=== PATIENT | female | born 1985 | race Caucasian/White ===

== ENCOUNTER 2023-03-30 06:35 | Day surgery (SDC) | payer BC, SELFPAY ==
[2023-03-30] VITALS (7 sets, daily range): BP systolic 106–131; BP diastolic 60–96; PULSE 58–62; RESP 16; TEMP 36.3–36.6; O2SAT 98–100; BMI 33.7
[2023-03-30] MEDS: LACTATED RINGERS 1000 ML 1,000 ML 100 ML IV (07:15)
[2023-03-30] MEDS: MIDAZOLAM HCL 1 MG/ML inj IVP (07:31)
[2023-03-30] MEDS: fentaNYL 100 MCG/2 ML inj IVP (07:32)
--- NOTE | 2023-03-30 07:33 | SUR.PREOP ---
TIME?OUT:?0730 PT/RN/MDA?VERIFICATION?OF?SURGICAL?SITE,?PROCEDURE,?AND?CONSENT OBTAINED?PRIOR?TO?INVASIVE?PROCEDURE.
[2023-03-30] MEDS: CEFAZOLIN 2 GM in 0.9 % SODIUM CHLORIDE Mini-bag 100 ML IVPB (07:45)
--- NOTE | 2023-03-30 07:58 | W.PM.NB ---
Nerve Block Nerve Block Time Seen by Provider: 07:30 Date Seen: 03/30/23 Type of block requested by surgeon for post-operative analgesia: axillary Side: right Time out performed: Yes Verification of patient name: Yes Verification of date of : Yes Site marking: site marked Name of person performing procedure: rustam litzy Continuous monitoring Was continuous monitoring of O2 sat, B/P, color television console monitor, recorded every 15 minutes?: Yes Procedure Checklist: sterile prep, needles and gloves Ultrasound guided. Images saved: Yes Medications given in 5ml increments after negative aspiration: Lidocaine %: 2 mL: 15 Needle gauge: 21 Patient tolerated procedure well: Yes Block Charges Block Charge (with Pro Fee): Axillary Nerve Use of Ultrasound Machine for Block: Yes- US Guidance/pain block
--- NOTE | 2023-03-30 08:29 | P.ORPRC_ITS ---
Procedure Note Date of procedure: 03/30/23 Procedure: PREOPERATIVE DIAGNOSIS: 1. Right volar radial wrist benign cyst POSTOPERATIVE DIAGNOSIS: 1. Right volar radial wrist benign cyst PROCEDURE: 1. Right volar radial wrist benign cyst open excision SURGEON: Moses Caraballo MD. RESTORATION SILVERSMITH: MARCY Garcias - Of note, an regulatory affairs assistant was critical for this case to aid in patient positioning, tissue retraction, limb manipulation/positioning, and closure. ANESTHESIA: Regional block plus MAC IMPLANTS: None TOURNIQUET: 9 minutes at 225 torr COMPLICATIONS: None evident INDICATIONS: The patient is a pleasant 38-year-old female who has experienced right volar, radial sided wrist growth/cyst development with associated pain that has progressively gotten worse. Nonoperative management has been tried but unsuccessful. Given the failure of nonoperative management, and how this affects daily life, surgery was recommended. DESCRIPTION OF PROCEDURE: Following a thorough discussion of risks, benefits, and alternatives consent was obtained and the operative extremity was marked. The patient was brought to the operating room and placed supine on the operating table. No antibiotics were administered as this was planned to be a local case only. Proper time-out was performed identifying proper patient, site, and procedure. The operative extremity was prepped and draped in the appropriate sterile fashion using ChloraPrep. The limb was exsanguinated and the tourniquet inflated. An incision was made on the volar aspect of the radial right wrist. Longitudinal incision.. Sharp incision through the skin, and blunt dissection through subcutaneous tissue allowed us to protect crossing neurologic structures as well as the radial artery. Blunt dissection around the cyst help from the surrounding tissues. The stalk indeed track deep towards the volar radial wrist joint. After mobilizing the cyst, it was accidentally punctured and a clear, thick, viscous gelatinous fluid was expressed consistent with a ganglion cyst. The remaining cyst sac was mobilized and freed from the surrounding tissue. The stalk was amputated with bipolar cautery at its base. The cyst was sent for permanent pathology. At this stage, the tourniquet was deflated and hemostasis achieved. Closure was performed with 4-0 Monocryl. Soft dressings were applied, and the patient was awoken/transferred to the recovery room in stable condition. PLAN: 1. Encourage elevation of the operative extremity. 2. Range of motion of the operative extremity/digits as tolerated. 3. Ibuprofen, acetaminophen and/or oxycodone as needed for pain. 4. Follow up with PA visit in 12-16 days for wound check and suture removal.
--- NOTE | 2023-03-30 08:29 | SUR.OPER ---
PATIENT QUESTIONS ANSWERED SATISFACTORILY PREOPERATIVELY.? PATIENT BROUGHT TO OR #3 PER CART AFTER BLOCK.? Patient positioned supine on OR #3 bed.? The perioperative?team supported armS bilaterally on arm boards. Final approval of positioning by surgeon.?
--- NOTE | 2023-03-30 08:30 | W.ANESCHARGE ---
Anesthesia Charges Start Date/Time Anesthesia Start Date: 03/30/23 Anesthesia Start Time: 07:41 Stop Date/Time Anesthesia Stop Date: 03/30/23 Anesthesia Stop Time: 08:30
== END 2023-03-30 09:17 | disposition home or self-care (01) ==
PROVIDERS: PCP Family Medicine; Visit Provider Orthopaedic Surgery Sports Medicine
PROC: (CPT 25111; principal; 2023-03-30 08:00)
DX: M67.431 Ganglion, right wrist (principal); G89.18 Other acute postprocedural pain
CPT/HCPCS: 25111; 01810; 64417; 76942; 88304; J0690; J1100; J2250; J2405; J2704; J3010; J7120

== ENCOUNTER 2023-08-18 15:11 | Outpatient (CLI) | payer BC, SELFPAY ==
--- NOTE | 2023-08-18 15:30 | MR_ITS ---
[facility] [place] [address] [facility] [address] Phone:?[phone] Fax:?[phone] Referring Physician Information: Moses Caraballo M.D. [address] [facility] [address] Phone:?[phone] Fax:?[phone] Patient:Thais Watson D.O.B:?1985 Sex:?Female Phone:?[phone] [facility] MRN:?[id number] Exam Date:?08/18/2023 EXAM: MRI of the RIGHT WRIST, without contrast CLINICAL HISTORY: Palpable abnormality of the right wrist. Evaluate recurring cyst. History of previous right wrist surgery. COMPARISONS: None available. TECHNICAL: MR sequences of the right wrist were obtained: coronals: T1, T2, STIR sagittals: PD FS axials: PD, PD FS Sedation: None Contrast: None FINDINGS: Joints and osseous structures: No fracture or suspicious bone marrow signal abnormality is seen. There is a small distal radioulnar joint effusion. There is no subluxation, dislocation, joint space narrowing, or erosive change. TFCC: A somewhat thinned appearance of the triangular fibrocartilage disc may reflect normal anatomic variation although it must be noted that evaluation is suboptimal because of nonarthrogram technique, and chronic attritional change is not excluded. The proximal and distal laminae of the ulnar attachment are intact. The volar and dorsal radioulnar ligaments are intact. Ligaments: Scapholunate: Intact. The scapholunate interval and angle are normal. The capitolunate angle is normal. Lunotriquetral: No evidence of tear on this nonarthrogram study. No offset of the lunotriquetral interval. Tendons: Flexors: Intact without tendinopathy or tenosynovitis. Extensors: ECU & 6th extensor compartment: Intact without romario tendinopathy tear or longitudinal splitting. Extensor retinaculum and fibrous subsheath appear intact without demonstrable subsheath injury or nonphysiologic ECU displacement. 1st - 5th extensor compartments: Intact and unremarkable. Neurovascular: Median: Unremarkable carpal tunnel without convincing neuritis or intrinsic/extrinsic masses. Ulnar: Unremarkable Guyon's canal without intrinsic/extrinsic masses. Ganglia: There is a 2.0 cm in craniocaudad dimension by 1.6 cm in AP dimension by 0.8 cm in transverse dimension ganglion at the volar and lateral aspect of the radial styloid abutting the dorsal and medial aspects of the radial artery and veins. IMPRESSION: 1. 2.0 x 1.6 x 0.8 cm ganglion at the volar and lateral aspect of the radial styloid abutting the dorsal and medial aspects of the radial artery and veins. 2. Small distal radioulnar joint effusion. 3. A somewhat thinned appearance of the triangular fibrocartilage disc may reflect normal anatomic variation although it must be noted that evaluation is suboptimal because of nonarthrogram technique, and chronic attritional change is not excluded. 4. No ligamentous or tendinous pathology of the right wrist. RCB Electronically signed on 08/19/2023 6:48:00 AM by Yefri Chow M.D.
== END 2023-08-18 15:12 | disposition home or self-care (01) ==
LOC: MRI 15:11
PROVIDERS: PCP Family Medicine; Visit Provider Orthopaedic Surgery Sports Medicine
DX: M67.431 Ganglion, right wrist (principal); M25.431 Effusion, right wrist
CPT/HCPCS: 73221

== ENCOUNTER 2023-10-27 19:50 | Emergency (ER) | payer BC, SELFPAY ==
[2023-10-27 19:52] VITALS: BP 153/89; PULSE 73; RESP 18; TEMP 36.4; O2SAT 99; BMI 34.5
--- NOTE | 2023-10-27 20:00 | ED.SOB ---
HPI - SOB/Dyspnea General Time Seen by Provider: 20:00 Date Seen: 10/27/23 Chief Complaint: Shortness of Breath/Dyspnea Stated Complaint: Upper resp issues-chest heavy-shortness of breath Time Seen by Provider: 10/27/23 19:59 Source: patient, RN notes reviewed and old records reviewed Mode of arrival: ambulatory Limitations: no limitations History of Present Illness HPI Narrative: 38-year-old female who comes in today with cough and chest congestion for the last couple of days. The symptoms started with sinus congestion, now with some chest heaviness and shortness of breath. This is worse when she is sitting and better when she is walking. Denies fever, chills, nausea, vomiting, diarrhea. No lower extremity swelling. Does smoke cigarettes. Notes history of exercise-induced asthma. Related Data Home Medications Medication Instructions Recorded Confirmed naproxen 500 mg tablet 500 mg PO BID PRN 06/21/23 08/11/23 Previous Rx's Medication Instructions Recorded albuterol sulfate 90 mcg/actuation 2 puff inhalation Q4H PRN 10/27/23 aerosol inhaler shortness of breath or wheezing #8.5 grams Allergies Allergy/AdvReac Type Severity Reaction Status Date / Time latex AdvReac Mild Verified 08/21/23 09:24 oxycodone AdvReac itching Verified 08/21/23 09:24 Review of Systems Status of ROS: Reports: 10 or more systems reviewed and unremarkable except as noted in History and below [facility] Surgical History History of surgery on right wrist (03/30/23) ?Z98.890 - Other specified postprocedural states (ICD-10) History of ankle surgery (12/12/19) ?Z98.890 - Other specified postprocedural states (ICD-10) Family History Maternal Grandmother Breast cancer Mother High blood pressure Social History Smoking Status: Current every day smoker What tobacco products do you use: cigars Do you use any of these nicotine containing products: None Second hand tobacco smoke exposure: No Exam Narrative: Exam Narrative: General: Well-developed and well-nourished, no acute distress Head: Atraumatic and normocephalic Eyes: Pupils are equal reactive, extraocular motions intact, conjunctiva clear ENT: External nose and ears are normal, posterior pharynx without erythema or exudate Neck: No midline cervical tenderness, full spontaneous range of motion the neck, trachea midline, no adenopathy Heart: Regular rate and rhythm no murmurs or thrills Lungs: Clear to auscultation bilaterally without wheezes or crackles Abdomen: Soft, nontender, nondistended with active bowel sounds Musculoskeletal: No tenderness, deformity, or edema Neurologic: Awake, alert, and oriented x3, no gross focal neurologic deficits, cranial nerves intact as tested Psych: Mood and affect are appropriate Skin: No rashes Const: Vital Signs, click to edit/add: Vital Signs - 24 hr 10/27/23 19:52 Temperature 97.5 F L Pulse Rate [Left P ulse Oximeter] 73 Respiratory Rate 18 Blood Pressure [Ri ght Upper Arm] 153/89 H Pulse Oximetry 99 Oxygen Delivery Me thod Room Air Course Course ED Course: Patient seen and examined, prior records are reviewed. Patient with upper respiratory symptoms and increasing chest tightness with history of exercise-induced asthma well, smokes cigarettes. On exam here, no hypoxia, no fever, no tachycardia. Labs are ordered along with chest x-ray and DuoNeb. Consider D-dimer or CT PE study to evaluate for pulmonary embolism but low risk by Wells criteria and PERC negative. Reevaluation(s) Time of Reevaluation #1: 20:34 Reevaluation #1: Chest x-ray independently interpreted by me negative for acute findings. Patient feels better after nebulizer treatment and is stable for discharge Vital Signs Vital signs: Initial Vital Signs Temperature 97.5 F L 10/27/23 19:52 Temperature Source Temporal Artery Scan 10/27/23 19:52 Pulse Rate 73 10/27/23 19:52 Pulse Rhythm Regular 10/27/23 19:52 Respiratory Rate 18 10/27/23 19:52 Blood Pressure 153/89 H 10/27/23 19:52 Blood Pressure Mean 110 H 10/27/23 19:52 Blood Pressure Position Sitting 10/27/23 19:52 Pulse Oximetry 99 10/27/23 19:52 Oxygen Delivery Method Room Air 10/27/23 19:52 Vital Signs Temperature 97.5 F L 10/27/23 19:52 Pulse Rate 73 10/27/23 19:52 Respiratory Rate 18 10/27/23 19:52 Blood Pressure 153/89 H 10/27/23 19:52 Pulse Oximetry 99 10/27/23 19:52 Oxygen Delivery Method Room Air 10/27/23 19:52 Temperature 97.5 F L 10/27/23 19:52 Pulse Rate 73 10/27/23 19:52 Respiratory Rate 18 10/27/23 19:52 Blood Pressure 153/89 H 10/27/23 19:52 Pulse Oximetry 99 10/27/23 19:52 Oxygen Delivery Method Room Air 10/27/23 19:52 Medications Administered Medications: Discontinued Medications Generic Name Dose Route Start Last Admin Trade Name Freq PRN Reason Stop Dose Admin Albuterol/Ipratropium 1 neb 10/27/23 20:07 10/27/23 20:42 Iprat-Albut 0.5-2.5 Mg/3 Ml Neb IH 10/27/23 20:08 1 neb ONCE ONE Administration MDM - SOB/Dyspnea Lab Data Labs: Lab Results 10/27/23 Range/Units 20:00 SARS-CoV-2 (PCR) Negative SARS-CoV-2 (Negative) Influenza Type A (PCR) Negative PCR FLU A (Negative) Influenza Type B (PCR) Negative PCR FLU B (Negative) RSV (PCR) Negative PCR RSV (Negative) Discharge Plan Discharge Clinical Impression: Acute bronchitis, Upper respiratory infection, viral Patient Disposition: Home, Self-Care Condition: Stable Instructions: Upper Respiratory Infection (DC), Acute Bronchitis (ED) Activity Level: No Restrictions Discharge Diet: Regular Prescriptions: New albuterol sulfate 90 mcg/actuation HFA aerosol inhaler 2 puff inhalation Q4H PRN (Reason: shortness of breath or wheezing) Qty: 8.5 0RF No Action naproxen 500 mg tablet 500 mg PO BID PRN Follow Up/Referrals: Jani Mtaos MD [Primary Care Provider] - Stand Alone Forms: [facility] Info Instructions
--- NOTE | 2023-10-27 20:07 | CRLHL7_ITS ---
For Patients: As a result of the Century Cures Act, medical imaging exams and procedure reports are released immediately into your electronic medical record. You may view this report before your referring provider. If you have questions, please contact your health care provider. INDICATION: Cough. TECHNIQUE: Chest 2 views. COMPARISON: None. FINDINGS: No focal consolidation, pleural effusion, or pneumothorax. Normal heart size and pulmonary vascularity. The bones are unremarkable. IMPRESSION: No acute cardiopulmonary findings. Dictated by Adelaide Lizarraga MD @ 10/27/2023 8:48:52 PM (Electronically Signed)
[2023-10-27 20:42] LABS: PCR FLU A Negative PCR FLU A (Negative); PCR FLU B Negative PCR FLU B (Negative); PCR RSV Negative PCR RSV (Negative); SARS PCR* Negative SARS-CoV-2 (Negative)
[2023-10-27] MEDS: IPRAT-ALBUT 0.5-2.5 MG/3 ML NEB 1 NEB IH (20:42)
== END 2023-10-27 21:01 | disposition home or self-care (01) ==
PROVIDERS: Emergency Provider Family Medicine; PCP Family Medicine
DX: J20.9 Acute bronchitis, unspecified (principal); J06.9 Acute upper respiratory infection, unspecified
CPT/HCPCS: 71046; 87631; 94640; 99284

== ENCOUNTER 2023-11-04 06:16 | Day surgery (SDC) | payer BC, SELFPAY ==
[2023-11-04] VITALS (7 sets, daily range): BP systolic 118–139; BP diastolic 62–88; PULSE 57–69; RESP 20; TEMP 36.4–36.7; O2SAT 96–100; BMI 34.0
--- OUTSIDE RECORDS SUMMARY | 2023-11-04 06:19 | XMS_ITS | Clinical Summary ---
Author Name Unknown Organization [facility] Address [place], [place] [address] Care Team Providers Care Cushion Assembler Name Role Phone Pcp, No Primary Care Provider Unavailabl e Allergies No known active allergies Medications Medication Sig Dispensed Refills Start Date End Date Status naproxen (NAPROSYN) 500 mg tabletIndications:Later al epicondylitis of left elbow Take 1 Tablet (500 mg) by mouth 2 times daily. 50 Tablet 1 12/10/2021 Active Active Problems Problem Noted Date Diagnosed Date Cigar smoker 12/07/2019 Health maintenance examination 07/04/2009 Overview: Pap smear 04/12/09 Seasonal allergic rhinitis Encounters Date Type Department Care Team Description 10/27/[address] [facility] Scanner 1 scan: (1-Ord) [facility], CHEST, 10/27/2023 10/09/2023 3:55 PM CHUCK BONER Preop Visit [facility] [address] [place] [address] Ciara Henson MD Pre-Op Exam (10/26/23 cyst removal on rt wrist ) 10/09/2023 Travel 08/18/[address] [facility] Scanner 1 scan: (1-Ord) [facility], MRI OF THE RIGHT WRIST, W/O CONTRAST, 08/18/2023 from Last 3 Months Immunizations Name Administration Dates Next Due Hepatitis B (Adult) 09/08/2001 Rabies Vaccine 10/18/2001,09/17/2001,09/10/2001 Td (Age >=7 Years) 10/12/2009,05/21/1999 Tdap 12/07/2019 Family History Medical History Relation Name Comments Hypertension Mother Other Mother migraines, GERD , hiatal hernia Relation Name Status Comments Mother Social History Tobacco Use Types Packs/Day Years Used Date Smoking Tobacco: Every Day Cigars Smokeless Tobacco: Never Tobacco Cessation:Ready to Q uit: No; Counseling Given: Yes Comments:3-4 cigars per day Alcohol Use Standard Drinks/Week Comments Yes 0 (1 standard drink = 0.6 oz pur e alcohol) occ PHQ-2 Answer Date Recorded PHQ-2 TOTAL SCORE 0 05/23/2021 Social Connections Answer Date Recorded Frequency of Communication with Friends and Fami ly 0 12/08/2022 Financial Resource Strain Answer Date R ecorded Difficulty of Paying Living Expenses 3 12/08/2022 Difficulty of Paying Living Expenses Not on file 12/08/2022 Food Insecurity Answer Date Recorded Worried About Running Out of Food in the Last Ye ar 1 12/08/2022 Transportation Needs Answer Date Record ed Lack of Transportation (Medical) 1 12/08/2022 Housing Stability Answer Date Recorded Unable to Pay for Housing in the Last Year 1 12/08/2022 Sex and Gender Information Value Date Recorded Sex Assigned at Not on file Gender Identity Not on file Sexual Orientation Not on file Obstetrics History Last Filed Vital Signs Vital Sign Reading Time Taken Comments Blood Pressure 126/80 10/09/2023 4:03 PM CHUCK BONER Pulse 57 10/09/2023 4:03 PM CHUCK BONER Temperature 36.8 ??C (98.3 ??F) 10/09/2023 4:03 PM CS T Respiratory Rate 16 09/17/2015 10:30 AM CHUCK BONER Oxygen Saturation 98% 10/09/2023 4:03 PM CHUCK BONER Inhaled Oxygen Concentration - - Weight 98.4 kg (217 lb) 10/09/2023 4:03 PM CHUCK BONER Height 170.2 cm (5' 7) 03/24/2023 4:17 PM CDT Body Mass Index 33.99 03/24/2023 4:17 PM CDT Plan of Treatment Health Maintenance Due Date Last Done Comments COVID-19 vaccine series (#1) 1983 Pneumococcal series for age 6-64 (1 of 2 - PCV) 1989 Hepatitis C screening for ag e 18-79 2001 Pap test for age 21-65 10/12/2012 0 (Completed outside of [facility]) Depression screening for age 12+ 05/23/2022 05/23/2021, 12/07/2019, 12/07/2019 Influenza for age 9-49 06/12/2023 BMI (ht and wt on same day) for age 18+ 03/24/2024 03/24/2023, 12/10/2021, 05/23/2021, Additional history exists Tetanus booster 12/07/2029 12/07/2019, 10/2009, 05/21/1999 HIV for age 15-65 Completed 05/18/2009 Tdap Completed 12/07/2019 Procedures Procedure Name Priority Date/Time Associated Diagnosis Comments SCAN-RADIOLOGY REPORT 10/27/2023 12:00 AM CHUCK BONER SCAN-MRI INTERPRETATION 08/18/20 12:00 AM CHUCK BONER from Last 3 Months Results * SCAN-RADIOLOGY REPORT (10/27/2023 12:00 AM CHUCK BONER) Anatomical Region Laterality Modality Other Scanner OTHER * SCAN-MRI INTERPRETATION (08/18/2023 12:00 AM CHUCK BONER) Anatomical Region Laterality Modality Other Scanner OTHER from Last 3 Months Care Teams Cushion Assembler Relationship Specialty Start Date End Date Pcp, No . PCP - General 04/02/15
[2023-11-04] MEDS: LACTATED RINGERS 1000 ML 1,000 ML 100 ML IV (06:45)
[2023-11-04] MEDS: SODIUM CHLORIDE 0.9 % (FLUSH) 10 ML SYRINGE IVF (06:59)
[2023-11-04] MEDS: fentaNYL 100 MCG/2 ML inj IVP (07:15)
[2023-11-04] MEDS: MIDAZOLAM HCL 1 MG/ML inj IVP (07:15)
--- NOTE | 2023-11-04 07:22 | SUR.PREOP ---
TIME?OUT:?0700, right wrist PT/RN/MDA?VERIFICATION?OF?SURGICAL?SITE,?PROCEDURE,?AND?CONSENT OBTAINED?PRIOR?TO?INVASIVE?PROCEDURE.
[2023-11-04] MEDS: CEFAZOLIN 2 GM in 0.9 % SODIUM CHLORIDE Mini-bag 100 ML IVPB (07:34)
--- NOTE | 2023-11-04 08:07 | W.PM.H&PU ---
History & Physical Update History & Physical Update H&P Reviewed and patient assessed: No changes noted
--- NOTE | 2023-11-04 08:07 | PM.ORPRC ---
Procedure Note Date of procedure: 11/04/23 Procedure: PREOPERATIVE DIAGNOSIS: 1. Right volar, radial wrist recurrent benign cyst POSTOPERATIVE DIAGNOSIS: 1. Right volar, radial wrist recurrent benign cyst PROCEDURE: 1. Right volar, radial wrist recurrent benign cyst open excision SURGEON: Moses Caraballo MD. BLANKER PRESS OPERATOR: MARCY Garcias - Of note, an assistant store manager operations was critical for this case to aid in patient positioning, tissue retraction, limb manipulation/positioning, and closure. ANESTHESIA: Regional block plus MAC IMPLANTS: None EBL: 5 ml TOURNIQUET: 23 minutes at 225 torr - biceps tourniquet COMPLICATIONS: None evident INDICATIONS: The patient is a pleasant 38-year-old female who has experienced right volar, radial wrist cyst development. She had this surgically excised in 2022. Unfortunately, it recurred. Thus, her pain has recurred with it when her wrist is in extended posture or when there is direct pressure overlying the cyst. Given the failure of nonoperative management and how this affects daily life, surgery was recommended. DESCRIPTION OF PROCEDURE: Following a thorough discussion of risks, benefits, and alternatives consent was obtained and the operative extremity was marked. The patient was brought to the operating room and placed supine on the operating table. No antibiotics were administered as this was planned to be a local case only. Proper time-out was performed identifying proper patient, site, and procedure. The operative extremity was prepped and draped in the appropriate sterile fashion using ChloraPrep. The limb was exsanguinated and the tourniquet inflated. The previous scar over the volar, radial side of the wrist was visualized and reincised sharply with a 15 blade. Blunt dissection through subcutaneous tissue allowed us to identify the radial artery which coursed immediately adjacent to the cyst. The artery was on the superficial ulnar side of the cyst. Although the cyst was bulbous and somewhat wrapped around the artery. The artery was protected throughout the case. The cyst was tracked down deep which did have a stalk going to the deep radial side of the wrist. Bipolar cautery was utilized to cauterize this. Additionally, adhesions some surrounding tissue were released and the cyst was removed EN bloc and sent for pathology. Thorough irrigation normal saline was performed. At this stage, the tourniquet was deflated and hemostasis achieved. Closure was performed with 3-0 Vicryl and 4-0 Stratafix for subcutaneous and subcuticular closure, respectively. Soft dressings were applied, and the patient was awoken/transferred to the recovery room in stable condition. PLAN: 1. Encourage elevation of the operative extremity. 2. Range of motion of the operative extremity/digits as tolerated. 3. Ibuprofen, acetaminophen and/or tramadol as needed for pain. 4. Follow up with PA visit in 12-16 days for wound check.
--- NOTE | 2023-11-04 08:24 | W.ANESCHARGE ---
Anesthesia Charges Start Date/Time Anesthesia Start Date: 11/04/23 Anesthesia Start Time: 07:26 Stop Date/Time Anesthesia Stop Date: 11/04/23 Anesthesia Stop Time: 08:23
--- NOTE | 2023-11-04 11:36 | W.ANESCHARGE ---
Anesthesia Charges Start Date/Time Anesthesia Start Date: 11/04/23 Anesthesia Start Time: 07:26 Stop Date/Time Anesthesia Stop Date: 11/04/23 Anesthesia Stop Time: 08:23
--- NOTE | 2023-11-04 11:37 | W.PM.NB ---
Nerve Block Nerve Block Time Seen by Provider: 07:14 Date Seen: 11/04/23 Type of block requested by surgeon for post-operative analgesia: axillary Side: right Time out performed: Yes Verification of patient name: Yes Verification of date of : Yes Site marking: site marked Name of person performing procedure: Antony Continuous monitoring Was continuous monitoring of O2 sat, B/P, director of corporate communications, recorded every 15 minutes?: Yes Procedure Checklist: sterile prep, needles and gloves Ultrasound guided. Images saved: Yes Medications given in 5ml increments after negative aspiration: Ropivicaine %: 0.5 mL: 15 Needle gauge: 22 and Lidocaine %: 2 mL: 15 Patient tolerated procedure well: Yes Additional comments: Needle noted adjacent to nerve Block Charges Block Charge (with Pro Fee): Brachial Plexus Use of Ultrasound Machine for Block: Yes- US Guidance/pain block
== END 2023-11-04 09:20 | disposition home or self-care (01) ==
PROVIDERS: PCP Family Medicine; Visit Provider Orthopaedic Surgery Sports Medicine
PROC: (CPT 25112; principal; 2023-11-04 07:30)
DX: M67.431 Ganglion, right wrist (principal); G89.18 Other acute postprocedural pain
CPT/HCPCS: 25112; 01810; 64415; 76942; 88304; J0690; J2250; J2405; J2704; J2795; J3010; J7120

== ENCOUNTER 2025-03-15 08:07 | Inpatient (IN) | payer BC, SELFPAY ==
[2025-03-15] VITALS (19 sets, daily range): BP systolic 132–161; BP diastolic 78–98; PULSE 59–78; RESP 14–18; TEMP 36.4–37; O2SAT 94–100; BMI 33.9
[2025-03-15] MEDS: LACTATED RINGERS 1000 ML 1,000 ML 100 ML IV ×2 (08:45→11:30)
[2025-03-15] MEDS: SODIUM CHLORIDE 0.9 % (FLUSH) 10 ML SYRINGE IVF (08:45)
[2025-03-15 08:52] LABS: Hemoglobin* 14.3 gm/dL (12.0-16.0)
[2025-03-15 08:54] LABS: Ur HCG Qualitative* Negative (Negative)
[2025-03-15 09:13] LABS: Creatinine* 0.7 mg/dL (0.5-1.5); Est. Creatinine Clearance* 98.01; Estimated Glomerular Filt Rate 111 ml/min
[2025-03-15] MEDS: ACETAMINOPHEN 500 MG TABLET 1000 MG PO (09:30)
[2025-03-15] MEDS: SCOPOLAMINE 1 MG/3 DAY PATCH 1 PATCH TRANSDERMA (09:30)
[2025-03-15] MEDS: GABAPENTIN 600 MG TABLET PO (09:30)
[2025-03-15] MEDS: CEFAZOLIN 1 GM inj 2 GM IVP ×2 (09:45→13:30)
--- NOTE | 2025-03-15 10:39 | P.NB_ITS ---
Nerve Block Nerve Block Time Seen by Provider: 09:45 Date Seen: 03/15/25 Type of block requested by surgeon for post-operative analgesia: TAP Side: bilateral Time out performed: Yes Verification of patient name: Yes Verification of date of : Yes Site marking: site marked Name of person performing procedure: Antony Continuous monitoring Was continuous monitoring of O2 sat, B/P, environmental monitoring technician, recorded every 15 minutes?: Yes Procedure Checklist: sterile prep, needles and gloves Ultrasound guided. Images saved: Yes Medications given in 5ml increments after negative aspiration: Marcaine %: 0.25 mL: 30 Needle gauge: 20 and Exparel mL: 10 Patient tolerated procedure well: Yes Additional comments: Needle noted between internal oblique and transversus abdominus. Local spread visualized Block Charges Block Charge (with Pro Fee): TAP Bilateral Use of Ultrasound Machine for Block: Yes- US Guidance/pain block
--- NOTE | 2025-03-15 10:40 | P.ANES_ITS ---
Anesthesia Charges Start Date/Time Anesthesia Start Date: 03/15/25 Anesthesia Start Time: 09:32 Stop Date/Time Anesthesia Stop Date: 03/15/25 Anesthesia Stop Time: 15:17 Coding CPT Codes CPT Codes: ANESTH SURG LOWER ABDOMEN - 39953 ([id number]) P2 - PATIENT W/MILD SYST DISEASE, QK - SAXOPHONE ASSEMBLER 2-4 CNCRNT ANES PROC, QX - PROCESS LABORATORY SPECIALIST SVC W/ MD MED DIRECTION
--- NOTE | 2025-03-15 10:40 | W.ANESCHARGE ---
Anesthesia Charges Start Date/Time Anesthesia Start Date: 03/15/25 Anesthesia Start Time: 09:32 Stop Date/Time Anesthesia Stop Date: 03/15/25 Anesthesia Stop Time: 15:17 Coding CPT Codes CPT Codes: ANESTH SURG LOWER ABDOMEN - 17304 ([id number]) P2 - PATIENT W/MILD SYST DISEASE, QK - CURED MEAT PACKING SUPERVISOR 2-4 CNCRNT ANES PROC, QX - SPECIAL TESTER SVC W/ MD MED DIRECTION
[2025-03-15] MEDS: 0.9 % SODIUM CHLORIDE 100 ml INJECTION (10:43)
[2025-03-15] MEDS: VASOPRESSIN 20 UNIT/ML INJ INJECTION (10:43)
--- NOTE | 2025-03-15 11:20 | SUR.OPER ---
Kelly, patient's mom was called to give her an update on how the surgery was going. Everything is going fine, we have been working approximately an hour and we are working to get the uterus out. Kelly was appreciative of the call.
--- NOTE | 2025-03-15 13:01 | SUR.OPER ---
Updated mom of patient Cori that the doctor ran into a complication and it will be a little longer. Reassured the patient was doing well. Kikei asked what complication. Stated patient's complication has to do with the bladder and Dr. Benz will discuss more with you later.
--- NOTE | 2025-03-15 13:45 | SUR.OPER ---
Farooq cathetar has been in and out of bladder 3 times during procedure.Use of sterile formula instilled in the bladder.
[2025-03-15] MEDS: KETOROLAC 30 MG/ML inj IVP (14:50)
--- NOTE | 2025-03-15 15:17 | P.GYNPRC_ITS ---
Procedure Note Date of procedure: 03/15/25 Will [facility] bill your pro fee for this procedure?: Yes Pre-op diagnosis: Symptomatic fibroid uterus. Post-op diagnosis: Same. Procedure: 1. Total abdominal hysterectomy. 2. Bilateral salpingectomy. 3. Bladder repair. 4. Cystoscopy. Anesthesia: GETA and other (TAP block.) Complications: Bladder injury. Surgeon: aPmela Benz MD Manager In Home: Catalina Gottlieb Estimated blood loss (mL): 200 IV fluids (mL): 1,800 Urine Output (mL): 200 Pathology: specimen obtained, sent to pathology (A - Uterus with attached cervix (103 g), Fibroid (600 g). B - left fallopian tube. C - right fallopian tube.) Condition: stable Disposition: PACU Findings: Enlarged irregular uterus with multiple fibroids. The largest fibroid was pedunculated, extending from the fundus of the uterus and extending to the patient's right, and appeared to consist of three large fibroids group together with calcifications and serosal adhesions. There were also distended, tortuous vessels along the serosal aspect of the most anterior fibroid. There was also what appeared to be a fibroid extending in to the right fallopian tube at the right uterine cornua. The remainder of the right fallopian tube appeared normal. The left fallopian tube was normal in appearance. Both ovaries were normal in appearance. Note, the left ovary contained adhesions connecting it to the sigmoid colon. Cystoscopy findings following closure of the vaginal cuff: Two sutures apparent within the bladder along the posterior aspect of the bladder, not within the trigone nor at the dome. Both ureteral orifices were well visualized and fluorescein-tinged urine jets were seen from both orifices multiple times. Cystoscopy findings following repair of the bladder defect: Intact repair, water tight. Both ureteral orifices were well visualized and fluorescein-tinged urine jets were seen from both orifices multiple times. Procedure Description: REFERRING PHSICIAN/PROVIDER: Dr. Henson. PREOPERATIVE DIAGNOSIS: Symptomatic fibroid uterus. POSTOPERATIVE DIAGNOSIS: Same. NAME OF PROCEDURE: Total abdominal hysterectomy. Bilateral salpingectomies. Bladder repair. Cystoscopy. SURGEON: Pamela Benz MD ASSISTANTS: Catalina Gottlieb MD, Trinidad Argueta MD. ANESTHESIA: General endotracheal. COMPLICATIONS: Bladder injury. ESTIMATED BLOOD LOSS: 200 cc. DRAINS: Farooq to gravity. PROCEDURE: After obtaining informed consent, the patient was taken to the operating room where general anesthesia was obtained without difficulty. A TAP block was administered by Anesthesiologist. She was prepared and draped in the normal sterile fashion in the low dorsal lithotomy position. A Farooq catheter was inserted sterilely into the bladder. A Pfannenstiel skin incision was made with a scalpel. This incision was carried down to the underlying layer of fascia with the Bovie. The fascia was incised in the midline and the incision extended laterally. The superior and inferior aspects of the fascial incision were grasped with Akil clamps and the underlying rectus muscles dissected off sharply. The rectus muscles were in the midline. The underlying peritoneum was identified and entered bluntly. The peritoneal incision was extended superiorly and inferiorly with good visualization of the bladder. The patient was placed in some mild Trendelenburg positioning. The bowels were packed cephalad using a large moistened laparotomy sponge. The Eulogio O retractor was placed in the incision. This provided adequate visualization of the pelvis. The pelvis was inspected with the findings noted above. The uterus was exteriorized as much as possible. In order to establish more normal anatomy, the decision was made to excise the large pedunculated mass of fibroids. The large accessory vessels which were seen on serosal surface of the fibroid mass were sealed with the LigaSure device on the serosal surface for hemostasis. A dilute solution of vasopressin was then injected directly into the base of the fibroid mass at the uterine fundus. The mass was then excised using electrocautery and passed off the field. The excision base was oversewn in a running fashion using 0 Vicryl for hemostasis. Clary clamps were placed at the cornua bilaterally for traction. Attention was turned to the left fallopian tube, which was elevated using a Jessica clamp and excised from its ovarian and broad ligament attachments using the LigaSure device. The LigaSure device was then used to divide the tube at the right uterine cornua and the tube was passed from the field. The right fallopian tube was then elevated with a Jessica clamp and excised from its ovarian and broad ligament attachments with the LigaSure device in a similar fashion up to the point where the tube was distended by what appeared to be a cornual fibroid. The tube was excised at this location and passed from the field. Both ureters were identified along their courses within the pelvic sidewall palpably. The right right round ligament was doubly clamped with Akil clamps, transected, and suture ligated with 0 Vicryl. The anterior leaf of the broad ligament was opened to the midline from the right side. The right ovarian ligament was then isolated, clamped across with 2 Sukhjinder clamps, transected, and doubly suture ligated with 0 Vicryl. Hemostasis was observed. The uterine vessels were skeletonized on the right side. The vessels were clamped across with a Sukhjinder and a straight clamp, transected, and suture ligated. Excellent hemostasis was visualized. Attention was then turned to the left side. The left round ligament was clamped with 2 Akil clamps, transected, and suture ligated with 0 Vicryl. The anterior leaf of the broad ligament was opened from the left side to the midline. The bladder was further bluntly dissected distally off of the lower uterine segment and cervix. The left ovarian ligament was clamped with 2 Sukhjinder clamps, transected, and doubly suture ligated with 0 Vicryl. Hemostasis was visualized. The left uterine vessels were skeletonized and then clamped across with Sukhjinder clamps, transected, and suture ligated. Excellent hemostasis was obtained. The remaining cardinal and uterosacral ligament attachments on both sides were serially clamped with straight Sukhjinder clamps adjacent to the lower uterine segment and cervix, transected and suture ligated with 0 Vicryl. Excellent hemostasis was obtained. Two Sukhjinder clamps were placed across the vaginal cuff angles. The uterus with attached cervix was then transected and passed off the field. The vaginal cuff angles were fixed with Sukhjinder stitches of 0 Vicryl. The intervening vaginal cuff was closed with [id number] sutures of 0 Vicryl while retracting the bladder using a sweetheart retractor. The abdomen and pelvis were then copiously irrigated. Small bleeding vessels were isolated with DeBakey clamps and cauterized for hemostasis. Geovanna was placed over raw tissue edges for additional hemostasis. My attention was then turned below. Cystoscopy was performed in the following manner. The Farooq catheter was sterilely removed from the bladder. Cystoscopy was performed using sterile normal saline to gravity drainage for distending medium. Both ureteral orifices were easily visualized and fluorescein-tinged jets of urine were seen from both ureteral orifices. The dome of the bladder was free of visible injury. Unfortunately, there was blue Vicryl suture material visualized along the posterior wall of the bladder above the trigone but not as high as the dome. It appeared that there were two sutures that had gone through and through the bladder during the vaginal cuff closure. These sutures were cut, and the bladder was visualized to have a 1 cm defect, spilling cystoscopy fluid into the abdomen. The cystoscope was removed. Attention was once again turned to the abdomen. An additional cuff suture in the midline was removed. The bladder defect was identified and grasped along the edges with Kayla clamps. The defect was reapproximated in a very careful running fashion using 3-0 Vicryl on an SH needle. A second imbricating layer was also placed of 3-0 Vicryl. Cystoscopy was repeated, and there still appeared to be some leaking from the defect. Dr. Argueta was called in at this point to provide further assistance. Additional 3-0 Vicryl was needed to further repair the defect and to imbricate incorporating a wider swath, as the initial imbrication layer had only reapproximated the mucosa, not the serosa. The bladder was back filled with sterile milk during the repair process and afterwards, to a total of 300 mL, and ultimately the repair was found to be watertight. Cystoscopy was again performed which again showed normal jets from both ureteral orifices, and an intact repair. The cystoscope was removed and a new Farooq catheter was placed sterilely into the bladder left to gravity drainage. My attention was once again turned to the abdomen. The abdomen is copiously irrigated. Geovanna was again applied over the raw edges of the vaginal cuff and bladder repair. No active bleeding was noted. All laparotomy sponges and instruments were then removed from the abdomen. The subfascial tissues were carefully inspected and hemostasis assured. The fascia was reapproximated in a running fashion with a looped 0 Maxon suture. The subcutaneous tissues were copiously irrigated and hemostasis assured. The subcutaneous adipose layer was reapproximated with interrupted sutures of 3-0 plain gut. The skin was closed in a subcuticular fashion with 4-0 Vicryl. Surgical glue and a dressing were applied. The patient tolerated the procedure well. Sponge, lap, needle, instrument counts were reported as correct x2. The patient was taken to recovery room awake and in stable condition. She received 2 g of IV Ancef preoperatively and an additional 2 g IV when operating time reached 3 hours. She received IV Toradol 30 mg at the conclusion of the procedure.
--- NOTE | 2025-03-15 15:18 | P.ANES_ITS ---
Anesthesia Charges Start Date/Time Anesthesia Start Date: 03/15/25 Anesthesia Start Time: 09:32 Stop Date/Time Anesthesia Stop Date: 03/15/25 Anesthesia Stop Time: 15:17 Coding CPT Codes CPT Codes: ANESTH SURG LOWER ABDOMEN - 99653 ([id number]) P3 - PATIENT W/SEVERE SYS DISEASE, QK - AB INITIO ETL DEVELOPER 2-4 CNCRNT ANES PROC, QX - AUDIT MANAGER SVC W/ MD MED DIRECTION
--- NOTE | 2025-03-15 15:18 | W.ANESCHARGE ---
Anesthesia Charges Start Date/Time Anesthesia Start Date: 03/15/25 Anesthesia Start Time: 09:32 Stop Date/Time Anesthesia Stop Date: 03/15/25 Anesthesia Stop Time: 15:17 Coding CPT Codes CPT Codes: ANESTH SURG LOWER ABDOMEN - 99695 ([id number]) P3 - PATIENT W/SEVERE SYS DISEASE, QK - HAIR MIXER 2-4 CNCRNT ANES PROC, QX - PIPE CREW FOREMAN SVC W/ MD MED DIRECTION
[2025-03-15] MEDS: fentaNYL 100 MCG/2 ML inj 50 MCG IVP ×2 (15:31→15:41)
[2025-03-15] MEDS: MORPHINE 2 MG/ML inj IVP ×3 (16:34→21:10)
[2025-03-15] MEDS: OXYCODONE 5 MG TABLET PO ×2 (17:44→22:52)
--- NOTE | 2025-03-15 19:06 | PC.NURSE ---
Addendum entered by Christy Johnson RN 03/15/25 19:14: Dressing to the abdomen CDI. CMS intact. Original Note: Pt arrived to the unit @ 1545, accompanied by family members. Tolerating RA, LSCTA. SCDs in place. LR running @ 40 ml/hr. Pt is eating and drinking. Slight nausea noted during dinner, fiction and nonfiction writer prose encouraged small-slow eating. Farooq is patent and draining. Pt reports pain to the abdomen, fiction and nonfiction writer prose utilizing PRN medication, active ice, repositioning, and environmental control. Continuing to assess and evaluate an effective pain management plan. Pt appears resting in bed with call light in reach.
[2025-03-15] MEDS: IBUPROFEN 600 MG TABLET PO (21:10)
[2025-03-15] MEDS: ONDANSETRON 2 MG/ML inj 4 MG IVP (21:16)
[2025-03-16] MEDS: MORPHINE 2 MG/ML inj IVP ×4 (01:26→19:56)
[2025-03-16] MEDS: IBUPROFEN 600 MG TABLET PO ×4 (03:13→20:44)
[2025-03-16 03:15] VITALS: BP 140/84; PULSE 61; RESP 18; TEMP 36.6; O2SAT 98
[2025-03-16] MEDS: OXYCODONE 5 MG TABLET PO ×4 (03:26→18:05)
[2025-03-16 06:17] LABS: Hemoglobin* 13.2 gm/dL (12.0-16.0)
[2025-03-16 06:29] LABS: Creatinine* 0.7 mg/dL (0.5-1.5); Est. Creatinine Clearance* 98.01; Estimated Glomerular Filt Rate 111 ml/min
--- NOTE | 2025-03-16 06:35 | PC.NURSE ---
Shift note ([id number]): Patient pleasant, alert and oriented. Remained in bed. Farooq catheter patent. Abdominal dressing C, D & I. Given scheduled Ibuprofen, PRN Oxycodone and PRN Morphine for abdominal and back pain rated 6-8/10. Ice pack applied.?
[2025-03-16 08:30] VITALS: BP 127/69; PULSE 56; RESP 18; TEMP 36.6; O2SAT 98
[2025-03-16] MEDS: ONDANSETRON 2 MG/ML inj 4 MG IVP (08:48)
[2025-03-16] MEDS: NITROFURANTOIN MONOHYD MACRO 100 MG CAPSULE PO (08:48)
--- NOTE | 2025-03-16 08:59 | PM.GYNPNPO ---
VETERINARY POULTRY INSPECTOR - A/P Postoperative Procedures: Procedures Operation Date: 03/15/25 09:30 Actual Procedure Side Surgeon p Total Abdominal Hysterectomy, Bilateral Salpingectomy, bladder repair, cystoscopy Bilateral Pamela Benz MD Postoperative day: 1 Postoperative status: doing well Postoperative plan: routine post-op care and other (Continue downey catheter until 03/24/2025. Will schedule her for voiding cystourethrogram on 03/24 to assess bladder. We discussed the surgery in detail, the anticipated postop course, activity restrictions, the catheter and follow up. Dr. Gottlieb will see her tomorrow.) Time Spent With Patient Time: Total time spent is greater than 50% in coordination of care (as documented) at patient's floor/unit and/or counseling patient: Time with patient: 25 - 35 minutes VETERINARY POULTRY INSPECTOR- PN:Subj Post-Op Subjective Date Seen: 03/16/25 Post Operative Details: Post-operative day number 1: status post total abdominal hysterectomy, bilateral salpingectomy, bladder repair and cystoscopy. Subjective: patient reports feeling better (Some lingering abdominal discomfort and back pain, though has a history of back pain previously as well), pain is well controlled (with IV morphine and now oxycodone), ambulating well and patient is tolerating oral intake VETERINARY POULTRY INSPECTOR-PN: Obj Exam Physical Exam: Vital signs: Temp Pulse Resp BP Pulse Ox O2 Del Method 97.9 F 61 18 140/84 H 98 Room Air 03/16/25 03:15 03/16/25 03:15 03/16/25 03:15 03/16/25 03:15 03/16/25 03:15 03/16/25 03:15 Constitutional: Constitutional: no acute distress Routine HEENT Exam: Head: Present normal inspection Routine Neck Exam: Neck: Present supple Routine Respiratory Exam: Respiratory: Present CTA bilaterally; Absent crackles, rhonchi or wheezes Routine Cardiovascular Exam: Cardiovascular: Present RRR; Absent murmur Routine Abdominal Exam: Abdominal: Present normal bowel sounds and soft; Absent distended or tenderness Comments: Incision(s) clean, dry, intact Routine Extremities Exam: Extremities: Present normal inspection; Absent calf tenderness or pedal edema Routine Psychiatric Exam: Psychiatric: Present normal affect Urinary Catheter Management: 2-way Urethral: Cath placed during this visit: no VETERINARY POULTRY INSPECTOR - PN: Obj Data Labs Labs: Laboratory Results - last 24 hr 03/15/25 03/16/25 08:40 05:58 Hgb 13.2 Creatinine 0.7 0.7 Estimated Creat Clear 98.01 98.01 Estimated GFR 111 111 Blood Type O Positive Antibody Screen NEGATIVE
[2025-03-16 11:00] VITALS: BP 135/75; PULSE 55; RESP 18; TEMP 36.4; O2SAT 97
[2025-03-16] MEDS: ACETAMINOPHEN 500 MG TABLET 1000 MG PO ×2 (11:11→18:06)
[2025-03-16 15:00] VITALS: BP 110/73; PULSE 71; RESP 18; TEMP 37.1; O2SAT 97
[2025-03-16 19:00] VITALS: BP 119/71; PULSE 85; RESP 17; TEMP 36.8; O2SAT 98
--- NOTE | 2025-03-16 19:30 | PC.NURSE ---
The patient is pleasant and cooperative with cares, VSS on RA. The patients pain has been difficult to keep under control with PRN medication and Ice to the Op site. Recommended more activity, although the patient remained in bed after breakfast in the chair. Farooq is patent and draining. Lower abdominal incision is CDI and open to air. No N/V, and call light is within reach. Bessy URRUTIA BSN
[2025-03-17] VITALS (7 sets, daily range): BP systolic 125–163; BP diastolic 74–92; PULSE 63–76; RESP 16–18; TEMP 36.6–37.2; O2SAT 96–98
[2025-03-17] MEDS: OXYCODONE 5 MG TABLET PO ×4 (00:23→22:53)
[2025-03-17] MEDS: IBUPROFEN 600 MG TABLET PO ×3 (04:28→20:42)
[2025-03-17] MEDS: ONDANSETRON 2 MG/ML inj 4 MG IVP ×2 (04:36→12:20)
[2025-03-17] MEDS: SIMETHICONE 80 MG TAB.CHEW 160 MG PO ×2 (05:24→12:00)
[2025-03-17] MEDS: PROMETHAZINE 25 MG/ML INJ 12.5 MG IVP (06:42)
--- NOTE | 2025-03-17 06:47 | PC.NURSE ---
Shift note ([id number]): Patient pleasant, alert and oriented. Transferring with assist of one. Farooq catheter patent. Small amount of bright red blood from vagina noted after passing gas. Catheter tubing was not secured to leg strap and may have been pulled. Unknown of blood was from vagina or urethra. Abdominal incision open to air with no drainage or signs of infection. Given scheduled Ibuprofen, PRN Oxycodone and PRN Morphine for abdominal pain rated 6-8/10. Ice pack applied at times. Pt reported nausea and vomited . Given PRN Zofran at 0430 and anti-nausea aromatherapy. Patient having nausea and vomited again at approximately 0600. Dr Salguero called and updated. New orders for phenergan 12.5mg IBP once and labs ordered.?
[2025-03-17 06:57] LABS: Basophils Percent Auto 0.2 % (0.0-3.0); Eosinophils Percent Auto 0.2 % (0.0-7.0); Hematocrit 36.4 % (33.0-51.0); Hemoglobin* 12.3 gm/dL (12.0-16.0); Immature Granulocytes Pct Auto 0.1 %; Lymphocytes Percent Auto 7.5 % (20-44); Mean Corpuscular HGB Conc 34 gm/dL (32-36); Mean Corpuscular Hemoglobin 32 pg (26-34); Mean Corpuscular Volume 94 fL (80-100); Monocytes Percent Auto 6.4 % (0.0-11.0); Neutrophils Percent Auto 85.6 % (42.0-72.0); Platelet Count* 232 K/uL (140-440); RDW Coefficient of Variation % 12.1 % (11.5-15.5); Red Blood Count 3.87 m/uL (4.00-5.20); White Blood Count* 12.37 K/uL (4.50-11.00)
[2025-03-17 07:02] LABS: Slide Review Reflex No
[2025-03-17 07:10] LABS: Chloride* 107 mmol/L (96-114); Potassium* 3.7 mmol/L (3.6-5.1); Sodium* 136 mmol/L (135-149)
[2025-03-17 07:13] LABS: Blood Urea Nitrogen* 11 mg/dL (5-24); Creatinine* 0.7 mg/dL (0.5-1.5); Est. Creatinine Clearance* 98.01; Estimated Glomerular Filt Rate 111 ml/min
[2025-03-17 07:14] LABS: Anion Gap 3 mEq/L (7-15); Calcium* 7.9 mg/dL (8.4-10.6); Carbon Dioxide* 26 mmol/L (20-32); Glucose* 111 mg/dL (60-115)
[2025-03-17] MEDS: MORPHINE 2 MG/ML inj IVP (07:42)
--- NOTE | 2025-03-17 08:00 | CRLHL7_ITS ---
For Patients: As a result of the Century Cures Act, medical imaging exams and procedure reports are released immediately into your electronic medical record. You may view this report before your referring provider. If you have questions, please contact your health care provider. INDICATION: Generalized post abdominal pain TECHNIQUE: Volumetric helical scanning of the abdomen and pelvis was performed with 106 cc Isovue 370 contrast material IV. Coronal and sagittal reconstructions were obtained. COMPARISON: None FINDINGS: Postop changes of hysterectomy are demonstrated. A small pneumoperitoneum is demonstrated along with numerous air bubbles in the inferior, anterior abdominal wall on images 128-141 of series 2, a 4.4 x 4.2 x 4.0 cm postop fluid collection containing air bubbles is demonstrated at the postop site. No other focal fluid collection is identified. A tiny amount of free fluid is noted. A Farooq catheter is present in the decompressed bladder. The liver is normal in size, shape and attenuation. A benign-appearing 12 x 10 x 5 mm fatty mass situated between the right diaphragm in the liver, as seen on images 14-16 of series 2. The bile ducts are within normal limits. The spleen, adrenal glands and pancreas are negative. The kidneys are unremarkable. There is no evidence of bowel obstruction or inflammation. No lymphadenopathy is evident. Minor atelectasis is noted in the lung bases. The heart size is normal. IMPRESSION: Recent postop changes of hysterectomy with pneumoperitoneum and 4.4 x 4.2 x 4.0 cm fluid collection with air bubbles at the postop site, consistent with an abscess. Tiny amount of free fluid also in the pelvis. Please note that all CT scans at this facility use dose modulation, iterative reconstruction, and/or weight-based dosing when appropriate to reduce radiation dose to as low as reasonably achievable. Dictated by Clyde Rodriges MD @ 03/17/2025 9:09:13 AM (Electronically Signed)
--- NOTE | 2025-03-17 09:34 | CRLHL7_ITS ---
For Patients: As a result of the Century Cures Act, medical imaging exams and procedure reports are released immediately into your electronic medical record. You may view this report before your referring provider. If you have questions, please contact your health care provider. INDICATION: Post hysterectomy and cystostomy. Evaluate for new bladder leak. TECHNIQUE: Volumetric helical scanning of the pelvis was performed following instillation of contrast material into the bladder by way of the indwelling Farooq catheter. Coronal and sagittal reconstructions were obtained. COMPARISON: Today`s abdomen/pelvis CT FINDINGS: Bladder is well filled with contrast material. No extravasation of contrast material from the bladder is evident. Soft tissue thickening and irregularity along the bladder dome as seen on images 24-34 of series 3 presumably represents site of bladder repair. The exam is otherwise unchanged from the exam performed earlier today. IMPRESSION: Negative for bladder leak Please note that all CT scans at this facility use dose modulation, iterative reconstruction, and/or weight-based dosing when appropriate to reduce radiation dose to as low as reasonably achievable. Dictated by Clyde Rodriges MD @ 03/17/2025 11:07:46 AM (Electronically Signed)
[2025-03-17] MEDS: NITROFURANTOIN MONOHYD MACRO 100 MG CAPSULE PO (10:08)
[2025-03-17] MEDS: ACETAMINOPHEN 500 MG TABLET 1000 MG PO (17:52)
--- NOTE | 2025-03-17 18:37 | PC.NURSE ---
Pt doing okay today. VSS. Pt states 8-10/10 pain at all times. With much encouragement, pt walked approximately 100 feet in the lorenzo twice this evening. Pt agreed to oral, Tylenol and ibuprofen this afternoon as well. Pt has not had any nausea or vomiting episodes this evening. Pt states she is passing gas. Tolerated a clear liquid supper. Urine output in downey is clear and straw color. Surgical incision is open to air; clean, dry and intact. Pt is sitting up in recliner chair at this time.
[2025-03-17] MEDS: polyethylene glycoL 3350 17 GM PACK PO (20:42)
--- NOTE | 2025-03-17 21:57 | P.GYNPN_ITS ---
SCHOOL BUSINESS ADMINISTRATOR - A/P Assessment and plan (1) Uterine myoma: Status: Acute Plan - s/p DARIEN, BS complicated by cystotomy. This was repaired and patient has indwelling catheter. - Postop course complicated by pain control and and slow advancement with of postop milestones - Will schedule tylenol and ibuprofen to be alternated every 3 hours. Oxycodone PRNa. Will avoid IV morphine - IS education given - Continue downey catheter until 03/24/2025. Will schedule her for voiding cyst ourethrogram on 03/24 to assess integrity of the bladder. Postoperative Procedures: Procedures Operation Date: 03/15/25 09:30 Actual Procedure Side Surgeon p Total Abdominal Hysterectomy, Bilateral Salpingectomy, bladder repair, cystoscopy Bilateral Pamela Benz MD Time Spent With Patient Time: Total time spent is greater than 50% in coordination of care (as documented) at patient's floor/unit and/or counseling patient: Time with patient: Greater than 35 minutes SCHOOL BUSINESS ADMINISTRATOR- PN:Subj Post-Op Subjective Time Seen by Provider: 08:00 Date Seen: 03/17/25 Post Operative Details: Post-operative day number 2: status post total abdominal hysterectomy, bilateral salpingectomy, cystotomy repair and cystoscopy. Overnight patient had a difficult time. She reports increased in pain early this morning. Described her pain as sharp in the mid and upper abdomen. This is new to her. She has incisional soreness that has been constant since surgery. Her pain is uncontrolled. Still needing morphine pushes. She is not yet tolerating a regular diet as she has new onset of nausea and vomiting this morning. She has passed flatus. She is not ambulating without difficulty. Lois's hesitant to get out of bed and progress with her postoperative milestones due to worry of pain. Minimal vaginal bleeding. She is urinating with downey. Urine output is adequate with straw-colored urine. No romario hematuria noted. Patient denies chest pain, SOB, or dizziness. Patient is very anxious about her pain control and postoperative complication. Stat CT AP ordered due to acute worsening of pain CTAP on 03/17/2025 IMPRESSION: Recent postop changes of hysterectomy with pneumoperitoneum and 4.4 x 4.2 x 4.0 cm fluid collection with air bubbles at the postop site, consistent with an abscess. Tiny amount of free fluid also in the pelvis. I discussed the CT finding with Dr. Rodriges who read her CT. Reassure me than her pneumoperitoneum is small and consistent with postoperative changes after open hysterectomy. He is unsure whether the posterior fluid collection is consistent with postoperative fluid collection versus developing infection versus urine. Decided to pursue CT cystogram to assess for bladder leak given postoperative complication. CT urogram was negative for bladder leak. Discussed with patient the reassuring imaging findings. We will aggressively work on mobilization and pain control. Reviewed postoperative goals with patient: Independent ambulation with manageable pain, passing gas, eating without nausea or vomiting, only requiring p.o. medications. SCHOOL BUSINESS ADMINISTRATOR-PN: Obj Exam Physical Exam: Vital signs: Temp Pulse Resp BP Pulse Ox O2 Del Method 99.0 F 65 16 136/74 97 Room Air 03/17/25 19:23 03/17/25 19:23 03/17/25 19:23 03/17/25 19:23 03/17/25 19:23 03/17/25 19:23 Narrative: Physical exam: General: No acute distress Psych: Alert and oriented x4, full affect HEENT: Normocephalic, atraumatic Heart: Regular rate and rhythm, no murmur rub or gallop Lungs: Clear to auscultation bilaterally Abdomen: Normoactive bowel sounds, soft, moderate tenderness with upper and mid abdomen.No rebound or guarding. Incision(s): Appropriately tender to palpation. Clean, dry, and intact. No erythema, induration, or abnormal discharge/breakdown Skin: No lesions or rashes Lower extremities: No edema or erythema Pelvic exam: No blood on pad Downey catheter in. Yellow urine Urinary Catheter Management: 2-way Urethral: Cath placed during this visit: no SCHOOL BUSINESS ADMINISTRATOR - PN: Obj Data Labs Labs: Laboratory Results - last 24 hr 03/17/25 06:46 WBC 12.37 H RBC 3.87 L Hgb 12.3 Hct 36.4 MCV 94 MCH 32 MCHC 34 RDW Coeff of Jimenez 12.1 Plt Count 232 Neut % (Auto) 85.6 H Lymph % (Auto) 7.5 L [place] % (Auto) 6.4 Eos % (Auto) 0.2 Baso % (Auto) 0.2 Neut # (Auto) 10.60 H Lymph # (Auto) 0.90 [place] # (Auto) 0.80 Eos # (Auto) 0.00 Baso # (Auto) 0.00 Abs Immat Gran (auto) 0.00 Imm/Tot Granulo (auto) 0.1 Sodium 136 Potassium 3.7 Chloride 107 Carbon Dioxide 26 Anion Gap 3 L BUN 11 Creatinine 0.7 Estimated Creat Clear 98.01 Estimated GFR 111 Glucose 111 Calcium 7.9 L
[2025-03-18] MEDS: IBUPROFEN 600 MG TABLET PO ×2 (02:41→08:53)
[2025-03-18 02:42] VITALS: BP 147/89; PULSE 74; RESP 18; TEMP 36.7; O2SAT 96
--- NOTE | 2025-03-18 06:24 | PC.NURSE ---
End of shift [id number]: A&O pleasant and cooperative. VSS. Rating pain 5-8/10 overnight. See eMAR for interventions. Disability Aide encouraged pt to ambulate and use IS. intermittent ice to site. Denies n/v. Reports passing gas. No drainage noted from incision. Small amount of blood from vagina noted. Farooq in place and draining. Independent in room. Using call light appropriately.
[2025-03-18 07:55] VITALS: BP 140/74; PULSE 60; RESP 16; TEMP 36.7; O2SAT 98
[2025-03-18] MEDS: NITROFURANTOIN MONOHYD MACRO 100 MG CAPSULE PO (08:53)
--- NOTE | 2025-03-18 09:16 | PM.GYNDS1 ---
DS: Providers Provider Time Seen by Provider: 09:16 Date Seen: 03/18/25 Date of admission: 03/15/25 08:07 Primary care physician: Ciara Henson MD Admitting Clinician: Pamela Benz MD Attending Physician on discharge: Pamela Benz MD SOLID FIBER PASTER OPERATOR-Discharge Summary Hospital Course Hospital Course Narrative: Patient is a 40 year old admitted on 03/15/25 for DARIEN, bilateral salpingectomy, cystotomy repair, cystoscopy. Indication for surgery: Fibroid uterus. Intraoperative findings were notable for fibroid uterus. Surgery was complicated by cystotomy requiring repair and prolonged indwelling downey. Postoperative course complicated by difficulty with pain control and nausea/vomiting, where comprehensive evaluation was completed yesterday. CT A/P demonstrated no acute post-operative process, voiding cystogram confirmed intact bladder repair. Her pain regimen was revised to scheduled ibuprofen, tylenol and narcotics PO PRN. VS have remained stable, afebrile throughout. Today, on postoperative day 3, she reports that she is feeling significantly better than yesterday. Her pain is tolerable on ibuprofen, tylenol and oxycodone PRN. She notes pain is still exacerbated by movement, greatest in the RLQ. Discussed abdominal binder to assist with this. She has been up to ambulate several times yesterday and spent time sitting in the chair. She is tolerating PO liquids and small volume solids without further nausea/vomiting. She has been passing flatus, no BM yet. Downey catheter remains in situ, overall has been well tolerated. Noted some vaginal bleeding yesterday, today is very scant on depend that has been in place overnight. No chest pain, dyspnea, lower extremity pain/swelling/erythema, fevers/chills. She understands plan to dismiss with downey catheter in place. Has cystogram and MD visit scheduled for 03/24. Time Spent with Patient Time attestation: Total time spent providing and/or coordinating discharge services: Time spent: Less than 30 minutes SOLID FIBER PASTER OPERATOR - Exam Physical Exam: Vital signs: Temp Pulse Resp BP Pulse Ox O2 Del Method 98.0 F 60 16 140/74 H 98 Room Air 03/18/25 07:55 03/18/25 07:55 03/18/25 07:55 03/18/25 07:55 03/18/25 07:55 03/18/25 07:55 Narrative: General: Alert and oriented, no acute distress Psych: Appropriate and affect Abdomen: Soft, nondistended. Mild tenderness to palpation in the lower abdominal quadrants, right greater than left. Tenderness is appropriate for postoperative state. No rebound or guarding. Incision is clean, dry and intact. Surgical glue noted. No erythema, induration or drainage. Pelvic exam: Single drop of blood on pad, less than 1 cm[address] in place. Extremities: No peripheral edema. No calf erythema or tenderness. SOLID FIBER PASTER OPERATOR - DS: Data Procedures Procedures: Procedures Operation Date: 03/15/25 09:30 Actual Procedure Side Surgeon p Total Abdominal Hysterectomy, Bilateral Salpingectomy, bladder repair, cystoscopy Bilateral Pamela Benz MD Discharge Plan Discharge Disposition: Home, Self-Care Date of Admission: 03/15/25 08:07 Primary Care Provider: Ciara Henson Condition: Stable Anticipated Discharge Date/Time: 03/18/25 09:28 Discharge Medications: New acetaminophen 500 mg capsule 1,000 mg PO Q6H PRNQty: 0 0RF ibuprofen 200 mg capsule 600 mg PO Q6H Qty: 0 0RF oxycodone 5 mg Tablet 5 mg PO Q4H PRN (Reason: Moderate Pain) Qty: 20 0RF nitrofurantoin monohyd/m-cryst 100 mg Capsule 100 mg PO DAILY Qty: 7 0RF docusate sodium 100 mg capsule 100 mg PO BID PRN (Reason: Constipation) Qty: 0 0RF Continued albuterol sulfate 90 mcg/actuation HFA aerosol inhaler 2 puff inhalation Q4H PRN (Reason: shortness of breath or wheezing) Qty: 8.5 0RF Discharge Orders: Discharge Order (Routine); Ordered 03/18/25 Ordered By: Dianna Argueta Patient Education: Hysterectomy (DC) Additional Instructions: Appointment with radiology for a cystogram at 9:15am 03/24/2025. Check in at main entrance desk of hospital at 9:00am to register. Downey catheter to stay in place until that appointment. They will call results to Dr. Benz following. Lifting: NO lifting more than 20lbs for 6 weeks Pelvic rest: Nothing in the vagina for 6 weeks Follow Up Appointments: Ciara Henson MD [Primary Care Provider, Family Practice] Forms: [facility] Info Instructions
--- NOTE | 2025-03-18 12:10 | PC.NURSE ---
Pt doing much better today. VSS. Pain controlled well with tylenol, ibuprofen and ice. Denies nausea. Pt is ambulating well independently. Abdominal binder was provided and pt stated comfort with that. Farooq education was provided, pt demonstrated teach back method. Pt belonging and discharge instructions signed. Education reviewed, no questions and concerns at this time. Pt discharged home at 1145 via her mother.
== END 2025-03-18 11:45 | disposition home or self-care (01) | DRG 519 ==
PROVIDERS: Obstetrics & Gynecology; Admitting Provider Obstetrics & Gynecology; PCP Student in an Organized Health Care Education/Training Program; Visit Provider Obstetrics & Gynecology
PROC: 0UT94ZZ Resection of Uterus, Percutaneous Endoscopic Approach (ICD-10-PCS; CPT 52000; principal; 2025-03-15 09:30)
DX: D25.9 Leiomyoma of uterus, unspecified (principal); G89.18 Other acute postprocedural pain; N99.72 Accidental puncture and laceration of a genitourinary system organ or structure during other procedure; R11.2 Nausea with vomiting, unspecified
CPT/HCPCS: 00840; 36415; 64488; 72192; 74177; 76942; 80048; 81025; 82565; 85018; 85025; 86850; 86900; 86901; A4314; A9270; J0665; J0666; J0690; J1100; J1885; J2250; J2270; J2405; J2550; J2704; J3010; J3475; J3490; J7120; Q9958; Q9967

== ENCOUNTER 2025-03-24 09:09 | Outpatient (CLI) | payer BC, SELFPAY ==
--- NOTE | 2025-03-24 09:15 | CRLHL7_ITS ---
For Patients: As a result of the Century Cures Act, medical imaging exams and procedure reports are released immediately into your electronic medical record. You may view this report before your referring provider. If you have questions, please contact your health care provider. Technique: Fluoroscopic retrograde cystogram performed. 300 cc Cystografin placed into the bladder using gravity drainage. Fluoroscopy time 1 minute 3 seconds. Indication: Bladder injury Comparison: CT 03/17/2025 Findings: Normal filling of the bladder with complete emptying postvoid. No extravasation of contrast. No bladder wall irregularity. No filling defect. No stone. Impression: Normal cystogram. No bladder leak. Catheter removed by nurse teaching supervisor following the study. Discussed with Dr. Benz. Dictated by Ethan Pan MD @ 03/26/2025 4:12:18 PM (Electronically Signed)
== END 2025-03-24 09:10 | disposition home or self-care (01) ==
LOC: RAD 09:11
PROVIDERS: PCP Student in an Organized Health Care Education/Training Program; Visit Provider Obstetrics & Gynecology
DX: S37.20XA Unspecified injury of bladder, initial encounter (principal)
CPT/HCPCS: 74430

== ENCOUNTER 2025-03-28 10:56 | Outpatient (CLI) | payer BC, SELFPAY | END 2025-03-28 10:57 | disposition home or self-care (01) | LOC: NFLDREF 10:58 | PROVIDERS: PCP Student in an Organized Health Care Education/Training Program; Visit Provider Obstetrics & Gynecology | DX: R35.0 Frequency of micturition (principal) | CPT/HCPCS: 87086 ==